=== PATIENT | male | born 1960 | race Caucasian/White ===

== ENCOUNTER 2018-04-27 13:02 | Inpatient (IN) | payer OTHER ==
[2018-04-27 14:17] LABS: ADD MAN DIFF? NO
[2018-04-27 14:20] LABS: WHITE BLOOD COUNT 11.9 10^3/ul (4.8-10.8)
[2018-04-27 14:20] LABS: BASOPHILS % 0.3 % (0.0-2.0); EOSINOPHILS # 0.2 10^3/ul (0.0-0.5); EOSINOPHILS % 1.8 % (0.0-7.0); HEMATOCRIT 43.5 % (42.0-52.0); HEMOGLOBIN 13.9 g/dl (14.0-18.0); LYMPHOCYTES # 2.9 10^3/ul (0.8-2.9); LYMPHOCYTES % 24.1 % (15.0-51.0); MEAN CORPUSCULAR HEMOGLOBIN 29.8 pg (29.0-33.0); MEAN CORPUSCULAR VOLUME 93.3 fl (82.0-101.0); MEAN PLATELET VOLUME 8.5 fl (7.4-10.4); MONOCYTE # 0.6 10^3/ul (0.3-0.9); MONOCYTES % 4.9 % (0.0-11.0); NEUTROPHIL # 8.2 10^3/ul (1.6-7.5); NEUTROPHILS % 68.6 % (39.0-77.0); PLATELET COUNT 300 10^3/UL (140-415); RED BLOOD COUNT 4.66 10^6/ul (4.70-6.10); RED CELL DISTRIBUTION WIDTH 13.2 % (11.5-14.5)
[2018-04-27 14:38] LABS: ALANINE AMINOTRANSFERASE 34 IU/L (13-69); ALBUMIN 3.8 g/dl (3.3-4.9); ALKALINE PHOSPHATASE 88 IU/L (42-121); ANION GAP 9 (8-16); ASPARTATE AMINO TRANSFERASE 22 IU/L (15-46); BILIRUBIN,INDIRECT 0.1 mg/dl (0-1.1); BILIRUBIN,TOTAL 0.1 mg/dl (0.2-1.3); CARBON DIOXIDE 36 mmol/L (21-31); CHLORIDE 101 mmol/L (97-110); GLUCOSE 89 mg/dl (70-220); TOTAL PROTEIN 6.5 g/dl (6.1-8.1)
[2018-04-27 14:40] LABS: INR 0.93; PARTIAL THROMBOPLASTIN TIME 25.2 Sec (25.0-35.0); PROTIME 12.6 Sec (11.9-14.9)
[2018-04-27] MEDS ORDERED: MIDAZOLAM 1 MG/ML 2 ML INJ ×2 (14:48→17:09)
[2018-04-27] MEDS ORDERED: ONDANSETRON 4 MG INJ (14:48)
[2018-04-27] MEDS ORDERED: FENTAnyl 50 MCG/ML VIAL (14:48)
[2018-04-27] MEDS ORDERED: METOCLOPRAMIDE 10 MG INJ (14:49)
[2018-04-27] MEDS ORDERED: DEXAMETHASONE 4 MG/ML 1 ML INJ ×2 (14:49)
[2018-04-27 14:52] LABS: BLOOD UREA NITROGEN 18 mg/dl (7-20); CALCIUM 8.7 mg/dl (8.4-10.2); CREATININE 0.41 mg/dl (0.61-1.24); POTASSIUM 4.5 mmol/L (3.5-5.1); SODIUM 141 mmol/L (135-144)
[2018-04-27] MEDS ORDERED: PHENYLephrine 10 MG INJ (16:35)
[2018-04-27] MEDS ORDERED: NORepinephrine 4 MG INJ (16:45)
[2018-04-27] MEDS ORDERED: ATROPINE 1 MG/10 ML SYRINGE IV (18:00)
[2018-04-27] MEDS ORDERED: DIPHENHYDRAMINE 50 MG INJ IV (18:00)
[2018-04-27] MEDS ORDERED: HYDROmorphONE 0.5 MG/0.5 ML SYG IV (18:00)
[2018-04-27] MEDS ORDERED: ONDANSETRON 4 MG INJ IV (18:00)
[2018-04-27] MEDS ORDERED: MIDAZOLAM 1 MG/ML 2 ML INJ IV (18:00)
[2018-04-27] MEDS ORDERED: MEPERIDINE 25 MG INJ IV (18:00)
[2018-04-27] MEDS ORDERED: LORAZEPAM 2 MG INJ IV (18:00)
[2018-04-27] MEDS ORDERED: EPHEDrine SULFATE 50 MG/5 ML SYG IV (18:00)
[2018-04-27] MEDS ORDERED: IPRATROPIUM (NEB) 0.5 MG/2.5 ML AMP HHN ×2 (18:00→18:30)
[2018-04-27] MEDS: THROMBIN 5000 UNIT VIAL (18:07)
[2018-04-27] MEDS: GELATIN SIZE 100 SPONGE (18:07)
[2018-04-27] MEDS: ROPIVACAINE 0.5 % 30 ML VIAL (18:07)
[2018-04-27] MEDS: POLYMYXIN/BACITRACIN 1L IRRIG (18:07)
[2018-04-27 18:23] LABS: ADD MAN DIFF? NO
[2018-04-27 18:25] LABS: BASOPHILS % 0.3 % (0.0-2.0); EOSINOPHILS # 0.1 10^3/ul (0.0-0.5); EOSINOPHILS % 1.1 % (0.0-7.0); HEMATOCRIT 34.2 % (42.0-52.0); HEMOGLOBIN 11.1 g/dl (14.0-18.0); LYMPHOCYTES # 2.9 10^3/ul (0.8-2.9); LYMPHOCYTES % 29.4 % (15.0-51.0); MEAN CORPUSCULAR HEMOGLOBIN 29.9 pg (29.0-33.0); MEAN CORPUSCULAR HGB CONC 32.5 g/dl (32.0-37.0); MEAN CORPUSCULAR VOLUME 92.2 fl (82.0-101.0); MEAN PLATELET VOLUME 8.7 fl (7.4-10.4); MONOCYTE # 0.5 10^3/ul (0.3-0.9); MONOCYTES % 4.6 % (0.0-11.0); NEUTROPHIL # 6.3 10^3/ul (1.6-7.5); NEUTROPHILS % 64.3 % (39.0-77.0); PLATELET COUNT 264 10^3/UL (140-415); RED BLOOD COUNT 3.71 10^6/ul (4.70-6.10); RED CELL DISTRIBUTION WIDTH 13.1 % (11.5-14.5)
[2018-04-27 18:25] LABS: WHITE BLOOD COUNT 9.8 10^3/ul (4.8-10.8)
[2018-04-27 18:41] LABS: AADO2 Arterial 159.1 mmHg (7.0-24.0); Arterial Base Excess 5.2 mmol/L (-3.0-3); Arterial Blood Gas Oxygen Sat 99.4 mmHG (95.0-98.0); Arterial COHb 3.4 % (0.0-3.0); Arterial Fraction of Oxyhgb 95.9 % (93.0-99.0); Arterial HCO3 29.5 mmol/L (22.0-26.0); Arterial MetHb 0.1 % (0.0-1.5); Arterial Total Hemglobin 12.3 g/dl (12.0-18.0); MODE VENT - AC; Site A-Line
[2018-04-27 18:46] LABS: INR 1.11; PROTIME 14.5 Sec (11.9-14.9); PT RATIO 1.1
[2018-04-27 18:47] LABS: PARTIAL THROMBOPLASTIN TIME 25.6 Sec (25.0-35.0)
[2018-04-27 19:02] LABS: ALANINE AMINOTRANSFERASE 28 IU/L (13-69); ALBUMIN 3.5 g/dl (3.3-4.9); ALBUMIN/GLOBULIN RATIO 1.52; ALKALINE PHOSPHATASE 65 IU/L (42-121); ANION GAP 10 (8-16); ASPARTATE AMINO TRANSFERASE 14 IU/L (15-46); BILIRUBIN,INDIRECT 0.2 mg/dl (0-1.1); BILIRUBIN,TOTAL 0.2 mg/dl (0.2-1.3); BLOOD UREA NITROGEN 16 mg/dl (7-20); CALCIUM 9.2 mg/dl (8.4-10.2); CARBON DIOXIDE 30 mmol/L (21-31); CHLORIDE 105 mmol/L (97-110); GLUCOSE 118 mg/dl (70-220); POTASSIUM 3.6 mmol/L (3.5-5.1); SODIUM 141 mmol/L (135-144); TOTAL PROTEIN 5.8 g/dl (6.1-8.1)
[2018-04-27 19:09] LABS: CREATININE 0.48 mg/dl (0.61-1.24)
[2018-04-27] MEDS ORDERED: ALBUTEROL/IPRATROPIUM (NEB) 3 ML AMP HHN (20:00)
[2018-04-27] MEDS ORDERED: LABETALOL HCL 20MG INJ (20:06)
[2018-04-27] MEDS ORDERED: ACETAMINOPHEN 1000MG/100ML IV 100 ML (20:07)
[2018-04-27] MEDS ORDERED: ALBUMIN HUMAN 25% 200 ML (20:10)
[2018-04-27] MEDS ORDERED: ALBUMIN HUMAN 5% 250 ML (20:10)
[2018-04-27] MEDS ORDERED: CA CHLORIDE 10% 10 ML SYRINGE (20:10)
[2018-04-27] MEDS ORDERED: PROVENTIL HFA 6.7GM INHALER (20:15)
[2018-04-27] MEDS ORDERED: SUGAMMADEX SODIUM 200 MG/2 ML VIAL IV ×2 (20:33→20:56)
[2018-04-27] MEDS ORDERED: AL HYDROX/MG HYDROX/SIMETH 30 ML CUP PO (21:00)
[2018-04-27] MEDS ORDERED: NACL 0.9% 3 ML SYG IV (21:00)
[2018-04-27] MEDS ORDERED: NALOXONE (0.4 MG/ML) INJ IV (21:00)
[2018-04-27] MEDS: NS + KCL 20 MEQ 1,000 ML IV (21:00)
[2018-04-27] MEDS ORDERED: hydrALAzine 20 MG INJ (21:06)
[2018-04-27] MEDS: HYDROmorphONE 0.5 MG/0.5 ML SYG IV (21:48)
[2018-04-27] MEDS: HYDROmorphONE 0.2 MG/ML PCA IV (22:13)
[2018-04-27 22:18] LABS: CK-MB 5.13 ng/ml (0.0-2.4)
[2018-04-27 22:18] LABS: TROPONIN-I < 0.012 ng/ml (0.000-0.120)
[2018-04-27] MEDS: DOCUSATE SODIUM 100 MG CAP PO (23:24)
[2018-04-27] MEDS: CEFAZOLIN 1 GM/50 ML (PMX) 50 ML IVPB (23:24)
[2018-04-27] MEDS: ACETAMINOPHEN 1000MG/100ML IV 100 ML IVPB (23:25)
[2018-04-27] MEDS: LORAZEPAM 2 MG INJ IV (23:26)
[2018-04-28] MEDS: ALBUTEROL/IPRATROPIUM (NEB) 3 ML AMP HHN ×4 (02:00→14:09)
[2018-04-28] MEDS: ACETAMINOPHEN 1000MG/100ML IV 100 ML IVPB ×4 (03:00→22:08)
[2018-04-28 05:16] LABS: HEMATOCRIT 29.5 % (42.0-52.0); HEMOGLOBIN 9.5 g/dl (14.0-18.0)
[2018-04-28 05:47] LABS: ANION GAP 11 (8-16); BLOOD UREA NITROGEN 18 mg/dl (7-20); CALCIUM 8.5 mg/dl (8.4-10.2); CARBON DIOXIDE 29 mmol/L (21-31); CHLORIDE 108 mmol/L (97-110); CREATININE 0.37 mg/dl (0.61-1.24); GLUCOSE 153 mg/dl (70-220); POTASSIUM 5.2 mmol/L (3.5-5.1); SODIUM 143 mmol/L (135-144)
[2018-04-28] MEDS: CEFAZOLIN 1 GM/50 ML (PMX) 50 ML IVPB ×3 (06:04→13:45)
[2018-04-28] MEDS: DOCUSATE SODIUM 100 MG CAP PO ×2 (09:00→20:40)
[2018-04-28] MEDS: DEXTROSE 5%-0.45% NACL 1,000 ML IV (13:20)
[2018-04-29] MEDS: ALBUTEROL/IPRATROPIUM (NEB) 3 ML AMP HHN ×4 (02:22→19:07)
[2018-04-29] MEDS: ACETAMINOPHEN 1000MG/100ML IV 100 ML IVPB ×4 (03:12→21:05)
[2018-04-29 07:21] LABS: ADD MAN DIFF? NO
[2018-04-29 07:25] LABS: BASOPHILS % 0.2 % (0.0-2.0); EOSINOPHILS % 0.2 % (0.0-7.0); HEMATOCRIT 27.4 % (42.0-52.0); HEMOGLOBIN 8.8 g/dl (14.0-18.0); LYMPHOCYTES # 3.2 10^3/ul (0.8-2.9); LYMPHOCYTES % 24.6 % (15.0-51.0); MEAN CORPUSCULAR HEMOGLOBIN 30.9 pg (29.0-33.0); MEAN CORPUSCULAR HGB CONC 32.1 g/dl (32.0-37.0); MEAN CORPUSCULAR VOLUME 96.1 fl (82.0-101.0); MEAN PLATELET VOLUME 9.3 fl (7.4-10.4); MONOCYTE # 0.9 10^3/ul (0.3-0.9); MONOCYTES % 6.8 % (0.0-11.0); NEUTROPHIL # 8.8 10^3/ul (1.6-7.5); NEUTROPHILS % 67.8 % (39.0-77.0); PLATELET COUNT 219 10^3/UL (140-415); RED BLOOD COUNT 2.85 10^6/ul (4.70-6.10); RED CELL DISTRIBUTION WIDTH 13.7 % (11.5-14.5)
[2018-04-29 07:25] LABS: WHITE BLOOD COUNT 12.9 10^3/ul (4.8-10.8)
[2018-04-29 07:55] LABS: ANION GAP 5 (8-16); BLOOD UREA NITROGEN 10 mg/dl (7-20); CALCIUM 8.4 mg/dl (8.4-10.2); CARBON DIOXIDE 37 mmol/L (21-31); CHLORIDE 100 mmol/L (97-110); CREATININE 0.48 mg/dl (0.61-1.24); GLUCOSE 94 mg/dl (70-220); POTASSIUM 4.2 mmol/L (3.5-5.1); SODIUM 138 mmol/L (135-144)
[2018-04-29] MEDS: DOCUSATE SODIUM 100 MG CAP PO ×2 (08:26→21:00)
[2018-04-29] MEDS ORDERED: HYDROCODONE/APAP (10/325) TAB PO (14:00)
[2018-04-29 19:27] LABS: TROPONIN-I < 0.012 ng/ml (0.000-0.120)
[2018-04-29] MEDS: HYDROmorphONE 0.5 MG/0.5 ML SYG IV (19:37)
[2018-04-29] MEDS: HYDROCODONE/APAP (10/325) TAB PO (22:43)
[2018-04-30] MEDS: ALBUTEROL/IPRATROPIUM (NEB) 3 ML AMP HHN ×4 (01:09→19:40)
[2018-04-30] MEDS: HYDROmorphONE 0.5 MG/0.5 ML SYG IV (01:42)
[2018-04-30 01:47] LABS: TROPONIN-I < 0.012 ng/ml (0.000-0.120)
[2018-04-30] MEDS: ACETAMINOPHEN 1000MG/100ML IV 100 ML IVPB ×4 (03:25→21:00)
[2018-04-30 08:18] LABS: ADD MAN DIFF? NO
[2018-04-30 08:25] LABS: BASOPHILS % 0.2 % (0.0-2.0); EOSINOPHILS # 0.1 10^3/ul (0.0-0.5); EOSINOPHILS % 0.6 % (0.0-7.0); HEMATOCRIT 29.7 % (42.0-52.0); HEMOGLOBIN 9.6 g/dl (14.0-18.0); LYMPHOCYTES # 1.3 10^3/ul (0.8-2.9); LYMPHOCYTES % 10.1 % (15.0-51.0); MEAN CORPUSCULAR HEMOGLOBIN 30.6 pg (29.0-33.0); MEAN CORPUSCULAR HGB CONC 32.3 g/dl (32.0-37.0); MEAN CORPUSCULAR VOLUME 94.6 fl (82.0-101.0); MEAN PLATELET VOLUME 9.1 fl (7.4-10.4); MONOCYTE # 0.9 10^3/ul (0.3-0.9); MONOCYTES % 7.1 % (0.0-11.0); NEUTROPHIL # 10.6 10^3/ul (1.6-7.5); NEUTROPHILS % 81.6 % (39.0-77.0); PLATELET COUNT 226 10^3/UL (140-415); RED BLOOD COUNT 3.14 10^6/ul (4.70-6.10); RED CELL DISTRIBUTION WIDTH 13.2 % (11.5-14.5)
[2018-04-30 08:52] LABS: ANION GAP 8 (8-16); BLOOD UREA NITROGEN 12 mg/dl (7-20); CALCIUM 8.5 mg/dl (8.4-10.2); CARBON DIOXIDE 37 mmol/L (21-31); CHLORIDE 98 mmol/L (97-110); CREATININE 0.38 mg/dl (0.61-1.24); GLUCOSE 104 mg/dl (70-220); POTASSIUM 4.1 mmol/L (3.5-5.1); SODIUM 139 mmol/L (135-144)
[2018-04-30] MEDS: DOCUSATE SODIUM 100 MG CAP PO ×2 (09:00→21:00)
[2018-05-01] MEDS: ALBUTEROL/IPRATROPIUM (NEB) 3 ML AMP HHN ×5 (01:50→20:31)
[2018-05-01] MEDS: ACETAMINOPHEN 1000MG/100ML IV 100 ML IVPB ×4 (03:09→20:37)
[2018-05-01 06:22] LABS: ADD MAN DIFF? NO
[2018-05-01 06:32] LABS: BASOPHILS % 0.3 % (0.0-2.0); EOSINOPHILS # 0.2 10^3/ul (0.0-0.5); EOSINOPHILS % 1.3 % (0.0-7.0); HEMATOCRIT 32.3 % (42.0-52.0); HEMOGLOBIN 10.3 g/dl (14.0-18.0); LYMPHOCYTES # 1.9 10^3/ul (0.8-2.9); LYMPHOCYTES % 13.8 % (15.0-51.0); MEAN CORPUSCULAR HEMOGLOBIN 30.1 pg (29.0-33.0); MEAN CORPUSCULAR HGB CONC 31.9 g/dl (32.0-37.0); MEAN CORPUSCULAR VOLUME 94.4 fl (82.0-101.0); MEAN PLATELET VOLUME 9.1 fl (7.4-10.4); NEUTROPHIL # 10.5 10^3/ul (1.6-7.5); NEUTROPHILS % 77.2 % (39.0-77.0); PLATELET COUNT 243 10^3/UL (140-415); RED BLOOD COUNT 3.42 10^6/ul (4.70-6.10); RED CELL DISTRIBUTION WIDTH 13.1 % (11.5-14.5)
[2018-05-01 06:32] LABS: WHITE BLOOD COUNT 13.6 10^3/ul (4.8-10.8)
[2018-05-01 07:00] LABS: ANION GAP 8 (8-16); BLOOD UREA NITROGEN 10 mg/dl (7-20); CALCIUM 8.8 mg/dl (8.4-10.2); CARBON DIOXIDE 39 mmol/L (21-31); CHLORIDE 99 mmol/L (97-110); GLUCOSE 115 mg/dl (70-220); POTASSIUM 4.6 mmol/L (3.5-5.1); SODIUM 141 mmol/L (135-144)
[2018-05-01] MEDS: DOCUSATE SODIUM 100 MG CAP PO ×2 (08:23→20:37)
[2018-05-02] MEDS: ALBUTEROL/IPRATROPIUM (NEB) 3 ML AMP HHN ×3 (02:00→14:56)
[2018-05-02] MEDS: ACETAMINOPHEN 1000MG/100ML IV 100 ML IVPB ×3 (02:15→15:00)
[2018-05-02 05:10] LABS: ADD MAN DIFF? NO
[2018-05-02 05:21] LABS: WHITE BLOOD COUNT 13.5 10^3/ul (4.8-10.8)
[2018-05-02 05:21] LABS: BASOPHILS % 0.2 % (0.0-2.0); EOSINOPHILS # 0.3 10^3/ul (0.0-0.5); EOSINOPHILS % 2.5 % (0.0-7.0); HEMOGLOBIN 10.5 g/dl (14.0-18.0); LYMPHOCYTES # 2.4 10^3/ul (0.8-2.9); LYMPHOCYTES % 17.5 % (15.0-51.0); MEAN CORPUSCULAR HEMOGLOBIN 30.3 pg (29.0-33.0); MEAN CORPUSCULAR HGB CONC 31.8 g/dl (32.0-37.0); MEAN CORPUSCULAR VOLUME 95.4 fl (82.0-101.0); MEAN PLATELET VOLUME 8.9 fl (7.4-10.4); MONOCYTE # 0.8 10^3/ul (0.3-0.9); MONOCYTES % 6.2 % (0.0-11.0); NEUTROPHIL # 9.9 10^3/ul (1.6-7.5); NEUTROPHILS % 73.3 % (39.0-77.0); PLATELET COUNT 311 10^3/UL (140-415); RED BLOOD COUNT 3.46 10^6/ul (4.70-6.10); RED CELL DISTRIBUTION WIDTH 13.2 % (11.5-14.5)
[2018-05-02 06:00] LABS: ANION GAP 15 (8-16); BLOOD UREA NITROGEN 18 mg/dl (7-20); CARBON DIOXIDE 36 mmol/L (21-31); CHLORIDE 95 mmol/L (97-110); CREATININE 0.45 mg/dl (0.61-1.24); GLUCOSE 119 mg/dl (70-220); POTASSIUM 4.7 mmol/L (3.5-5.1); SODIUM 141 mmol/L (135-144)
[2018-05-02] MEDS: HYDROmorphONE 0.5 MG/0.5 ML SYG IV (06:37)
[2018-05-02] MEDS: DOCUSATE SODIUM 100 MG CAP PO (09:45)
[2018-05-02] MEDS: HYDROCODONE/APAP (10/325) TAB PO ×2 (09:47→15:53)
== END 2018-05-02 16:45 | disposition home or self-care (01) | DRG 473 ==
LOC: REC 13:02 → MS1 05-01 12:31 → ICU 21:34 → TEL 04-28 19:26
PROC: 0RG2071 Fusion of 2 or more Cervical Vertebral Joints with Autologous Tissue Substitute, Posterior Approach, Posterior Column, Open Approach (ICD-10-PCS; principal; 2018-04-27 16:16)
DX: M47.12 Other spondylosis with myelopathy, cervical region (principal); M48.02 Spinal stenosis, cervical region; I45.10 Unspecified right bundle-branch block; J44.9 Chronic obstructive pulmonary disease, unspecified; I10 Essential (primary) hypertension; F17.210 Nicotine dependence, cigarettes, uncomplicated; I95.81 Postprocedural hypotension; D64.9 Anemia, unspecified
CPT/HCPCS: 36600; 71045; 72020; 72125; 80048; 80053; 82553; 82803; 84484; 85014; 85018; 85025; 85610; 85730; 86850; 86900; 86901; 87081; 93005; 93306; 94640; 94664; 97116; 97162; 97530